=== PATIENT | male | born 1965 | race Caucasian/White ===

== ENCOUNTER 2017-01-20 18:45 | Observation (INO) | payer SELFPAY ==
[2017-01-20 19:04] VITALS: BMI 27.8
--- NOTE | 2017-01-20 19:32 | C.PDOC ---
History Of Present Illness Patient is a 51 year old male brought in by EMS for public intoxication. Patient is combative and sleepy. No signs of trauma or injury. Time Seen by Provider: 01/20/17 19:02 Chief Complaint (Nursing): Substance Abuse History Per: EMS History/Exam Limitations: intoxication Onset/Duration Of Symptoms: Hrs Current Symptoms Are (Timing): Still Present Modifying Factor(s): Alcohol Past Medical History Reviewed: Historical Data, Nursing Documentation, Vital Signs Vital Signs: Last Vital Signs Temp 98.1 F 01/20/17 22:45 Pulse 97 H 01/20/17 22:45 Resp 16 01/20/17 22:45 BP 105/65 01/20/17 22:45 Pulse Ox 95 01/20/17 22:45 Family History: States: Unknown Family Hx - Social History Hx Alcohol Use: Yes Hx Substance Use: No - Immunization History Hx Tetanus Toxoid Vaccination: No Hx Influenza Vaccination: No Hx Pneumococcal Vaccination: No Review Of Systems Review Of Systems: ROS cannot be obtained secondary to pt's inabilty to answer questions. (Intoxication) Physical Exam - Physical Exam Appears: Non-toxic, Combative, Other (Sleepy, ETOH on breath) Skin: Normal Color, Warm, Dry Head: Atraumatic, Normacephalic Oral Mucosa: Moist Cardiovascular: Rhythm Regular Respiratory: Normal Breath Sounds, No Rales, No Rhonchi, No Wheezing Gastrointestinal/Abdominal: Soft, No Tenderness, No Distention, No Guarding, No Rebound Extremity: Normal ROM, No Tenderness ED Course And Treatment O2 Sat by Pulse Oximetry: 97 (Room air) Pulse Ox Interpretation: Normal Reevaluation Time: 00:34 Reassessment Condition: Improved (ambulates to bathroom safely) Medical Decision Making Medical Decision Making: alcohol abuse. ED OBSERVATION Date of observation admission: 01/20/17 Time of observation admission: 19:04 - Observation admission statement Patient is being placed in observation because:: acute alcohol intoxication. - Goals of Observation Goals of observation are:: Sobriety. - Progress Note Progress Note: 01/20/17 19:52 Vital stable. Patient resting. 01/20/17 23:30 Patient resting comfortably with no complaints. Disposition Doctor Will See Patient In The: Office Counseled Patient/Family Regarding: Studies Performed, Diagnosis - Disposition Disposition: HOME/ ROUTINE Disposition Time: 01:00 Condition: GOOD - Clinical Impression Clinical Impression: Alcohol abuse - Scribe Statement The provider has reviewed the documentation as recorded by the Scribe Jeremy Nieves All medical record entries made by the Scribe were at my direction and personally dictated by me. I have reviewed the chart and agree that the record accurately reflects my personal performance of the history, physical exam, medical decision making, and the department course for this patient. I have also personally directed, reviewed, and agree with the discharge instructions and disposition. Physician Patient Turnover Patient Signed Over To: Mainor Grimes Handoff Comments: dispo in AM when sober.
[2017-01-21 04:02] VITALS: BP 127/85; PULSE 72; RESP 20; TEMP 97.8; O2SAT 98
== END 2017-01-21 04:09 | disposition home or self-care (01) ==
LOC: C.ER 18:45 → C.9OBSV 19:04
PROVIDERS: ADMIT Internal Medicine; ATTEND Internal Medicine
DX: F10.129 Alcohol abuse with intoxication, unspecified (principal)
CPT/HCPCS: 99284; G0378